=== PATIENT | female | born 1950 | race Caucasian/White ===

== ENCOUNTER → 2016-05-23 16:44 | Outpatient (CLI) | payer MEDICARE | END | disposition home or self-care (01) | LOC: D.MAMMO 09:15 | DX: Z12.31 Encounter for screening mammogram for malignant neoplasm of breast (principal) ==

== ENCOUNTER 2017-12-12 19:00 | Outpatient (CLI) | payer MEDICARE | END 2017-12-12 23:59 | disposition home or self-care (01) | LOC: D.MAMMO 19:00 | DX: Z12.31 Encounter for screening mammogram for malignant neoplasm of breast (principal) ==

== ENCOUNTER → 2018-01-07 18:34 | Outpatient (CLI) | payer MEDICARE | END | disposition home or self-care (01) | LOC: D.MAMMO 15:00 | DX: R92.8 Other abnormal and inconclusive findings on diagnostic imaging of breast (principal) ==

== ENCOUNTER 2018-04-22 14:32 | Inpatient (IN) | payer MEDICARE ==
[~2018-04-22] VITALS: Ht 160 cm; Wt 86.4 kg
[2018-04-22] MEDS ORDERED: JANUVIA100 MG PO (14:40)
[2018-04-22] MEDS ORDERED: GLUCOPHAGE1000 MG PO (14:40)
[2018-04-22] MEDS ORDERED: ACCUPRIL5 MG PO (14:41)
[2018-04-22] MEDS ORDERED: TRAZODONE HCL150 MG PO (14:41)
[2018-04-22] MEDS ORDERED: LIPITOR20 MG PO (14:41)
[2018-04-22] MEDS ORDERED: GLUCOTROL XL 1010 MG PO (14:41)
--- NOTE | 2018-04-22 14:47 | NUR ---
INFLUENZA SWAB DONE IN TRIAGE AND SENT TO LAB.
[2018-04-22 15:15] LABS: BASOPHILS 0.1 % (0-2); EOSINOPHILS 0.2 % (0-7); HEMATOCRIT 33.1 % (36.0-48.0); HEMOGLOBIN 11.4 g/dL (12-16); IMMATURE GRANULOCYTES 0.4 % (0-5); LYMPHOCYTES 7.7 % (15-50); MCH 28.8 pg (26.0-34.0); MCHC 34.4 g/dL (31.0-37.0); MCV 83.6 fL (80.0-100.0); MEAN PLATELET VOLUME 10.6 fL (7.4-10.4); MONOCYTES 7.3 % (2-11); NEUTROPHILS 84.3 % (40-80); PLATELET COUNT 263 10x3/uL (130-400); RBC 3.96 10x6/uL (4.00-5.40); RDW 12.8 % (11.5-14.5); WBC 19.1 10x3/uL (4.8-10.8)
[2018-04-22 15:30] LABS: APTT 29.6 SECONDS (22.8-39.4); INR 1.14 (0.85-1.17); PROTIME 14.1 SECONDS (11.6-15.0)
[2018-04-22 15:34] LABS: ALBUMIN 3.1 g/dL (3.4-5.0); ALKALINE PHOSPHATASE 48 U/L (46-116); ALT (SGPT) 21 U/L (10-68); CALC OSMOLALITY 274 mosm/kg (275-300); CALCIUM 8.5 mg/dL (8.5-10.1); CHLORIDE - SERUM 100 mmol/L (98-107); CREATININE - SERUM 1.4 mg/dL (0.6-1.3); GLUCOSE 151 mg/dL (74-106); POTASSIUM - SERUM 3.8 mmol/L (3.5-5.1); PROTEIN - SERUM 7.6 g/dL (6.4-8.2); SODIUM 135 mmol/L (136-145); UREA NITROGEN 19 mg/dL (7-18); eGFR NON AFRICAN AMERICAN 40 mL/min (90-120)
[2018-04-22 15:45] LABS: CKMB 1.3 U/L (0.0-3.6); CREATINE KINASE 161 UL (21-215); PRO BNP 342 pg/mL (0-125); TROPONIN-I < 0.017 ng/mL (0.000-0.060)
[2018-04-22 16:25] VITALS: BP 135/55
[2018-04-22 17:30] VITALS: BP 125/39
[2018-04-22 18:32] VITALS: BP 128/46
[2018-04-22 19:32] VITALS: BP 134/47
[2018-04-22 20:32] VITALS: BP 131/46
--- NOTE | 2018-04-22 21:10 | NUR ---
ZITHROMAX INFUSION COMPLETE @ 8117
[2018-04-22 21:15] VITALS: BP 118/47
--- NOTE | 2018-04-22 22:05 | NUR ---
PT ARRIVED FROM ER VIA WHEELCHAIR BY ER STAFF. PT HAS A IV IN LT HAND. BED IN LOW POSITION WITH CALL LIGHT IN REACH. WILL CONTINUE TO MONITOR PT AND FOLLOW PLAN OF CARE.
[2018-04-23] VITALS: BP 133/60
[2018-04-23 04:32] VITALS: BP 137/68
--- NOTE | 2018-04-23 07:42 | NUR ---
ROUNDING DONE WITH PATIENT LAYING IN BED WITH NASAL CANNULA AT 2 L . COUGHING. ON HEART MONITOR SHOWING SR, HR 72. LEFT HAND PIV SEEN WITH SALINE LOCK. WILL MONITOR.
--- NOTE | 2018-04-23 08:46 | NUR ---
T 100.2. NOTHING ON EMAR FOR FEVER. I CALLED GWENDOLYN SANDOVAL APN FOR ORDERS AND SHE WILL PLACE SOMETHING.
[2018-04-23 09:00] VITALS: BP 111/69
--- NOTE | 2018-04-23 10:11 | NUR ---
AXILLARY TEMP NOW 97.6.
[2018-04-23 11:51] VITALS: Ht 160 cm; Wt 86.4 kg
--- NOTE | 2018-04-23 12:31 | NUR ---
DENIES NEEDS AT THIS TIME, COUGHING. NO SPUTUM SEEN.
[2018-04-23 12:40] LABS: BASOPHILS 0.2 % (0-2); EOSINOPHILS 0.2 % (0-7); HEMATOCRIT 29.4 % (36.0-48.0); HEMOGLOBIN 9.8 g/dL (12-16); IMMATURE GRANULOCYTES 0.2 % (0-5); LYMPHOCYTES 11.5 % (15-50); MCHC 33.3 g/dL (31.0-37.0); MEAN PLATELET VOLUME 10.5 fL (7.4-10.4); MONOCYTES 9.4 % (2-11); NEUTROPHILS 78.5 % (40-80); PLATELET COUNT 234 10x3/uL (130-400); RDW 13.1 % (11.5-14.5)
[2018-04-23 12:43] VITALS: BP 116/61
[2018-04-23 12:44] LABS: WBC 12.6 10x3/uL (4.8-10.8)
[2018-04-23 12:53] LABS: % SATURATION 7 % (15-55); IRON 15 ug/dl (35-150); TOTAL IRON BIND CAPACITY 202 ug/dl (260-445); UNSAT IRON BIND CAPACITY 187 ug/dl (150-375)
[2018-04-23 13:09] LABS: ALBUMIN 2.6 g/dL (3.4-5.0); ANION GAP 16.5 mmol/L (8-16); BILIRUBIN - TOTAL 0.32 mg/dL (0.2-1.3); CALCIUM 8.1 mg/dL (8.5-10.1); CARBON DIOXIDE 22.8 mmol/L (21.0-32.0); CREATININE - SERUM 1.2 mg/dL (0.6-1.3); POTASSIUM - SERUM 3.3 mmol/L (3.5-5.1); PROTEIN - SERUM 6.4 g/dL (6.4-8.2)
--- NOTE | 2018-04-23 13:18 | NUR ---
REFUSED SCD PATIENT IS UP AND DOWN TO RESTROOM.
--- NOTE | 2018-04-23 14:52 | NUR ---
URINE SENT TO LAB ORDERED.
--- NOTE | 2018-04-23 15:30 | NUR ---
PATIENT IS MADE NPO FOR CTA. ADILENE RAMOS RN TRYING TO GET A 20 G IV IN.
--- NOTE | 2018-04-23 15:48 | NUR ---
ADILENE RAMOS RN WAS UNABLE TO GET IV IN. I CALLED RICHARDSON CHA RN VASCULAR ACCESS NURSE.
[2018-04-23 16:05] VITALS: BP 122/54
[2018-04-23 16:05] LABS: APPEARANCE CLEAR (CLEAR); BILIRUBIN NEGATIVE (NEGATIVE); COLOR YELLOW (YELLOW); GLUCOSE 50 mg/dL (NEGATIVE); KETONE NEGATIVE (NEGATIVE); NITRITE NEGATIVE (NEGATIVE); PROTEIN NEGATIVE (NEGATIVE); SPECIFIC GRAVITY 1.015 (1.005-1.020); UROBILINOGEN NORMAL (NORMAL)
--- NOTE | 2018-04-23 16:20 | NUR ---
RICHARDSON CHA RN TO START 20 G TO RIGHT HAND.
--- NOTE | 2018-04-23 17:41 | NUR ---
CALLED TO ROOM WITH PATIENT THINKING HER TEMP HAS GONE UP. ORAL 101.0. EVEN THOUGH PATIENT IS NPO FOR CTA, TYLENOL GIVEN WITH SIP OF WATER. FAMILY IS AT BEDSIDE.
--- NOTE | 2018-04-23 18:27 | NUR ---
RE-CHECKED TEMP, NOW 102.1. THIS IS RELAYED TO DR ROSADO. AWAITING NEW ORDERS.
--- NOTE | 2018-04-23 19:25 | NUR ---
INITIAL ASSESSMENT COMPLETED - PT FAMILY AT BEDSIDE. PT A/O X4. 20G PIV IN R HAND C/D/I, PATENT. 22G IN L HAND C/D/I, PATENT. NO C/O PAIN/DISCOMFORT AT THIS TIME. DENIES NEEDS. WCTM AND FOLLOW POC. CL IN REACH, SR UP X2, BED IN LOWEST POSITION.
[2018-04-23 20:00] VITALS: BP 118/57
--- NOTE | 2018-04-23 21:55 | NUR ---
PT BACK FROM CT SCAN, NOTIFIED PT OF ABILITY TO BREAK NPO STATUS. PT VERBALIZED UNDERSTANDING. ADMINISTERED PM MEDS, NO FURTHER NEEDS NOTED AT THIS TIME. CL IN REACH, SR UP X2, BED IN LOWEST POSITION.
[2018-04-24] VITALS: BP 116/49
[2018-04-24 04:00] VITALS: BP 123/58
[2018-04-24 06:17] LABS: FOLATE (FOLIC ACID) - SERUM 13.2 ng/mL (>3.0)
[2018-04-24 07:03] LABS: BASOPHILS 0.2 % (0-2); HEMATOCRIT 29.2 % (36.0-48.0); HEMOGLOBIN 9.8 g/dL (12-16); IMMATURE GRANULOCYTES 0.3 % (0-5); MCH 28.4 pg (26.0-34.0); MCHC 33.6 g/dL (31.0-37.0); MCV 84.6 fL (80.0-100.0); MEAN PLATELET VOLUME 10.6 fL (7.4-10.4); MONOCYTES 9.4 % (2-11); NEUTROPHILS 75.1 % (40-80); PLATELET COUNT 239 10x3/uL (130-400); RBC 3.45 10x6/uL (4.00-5.40); RDW 13.3 % (11.5-14.5); WBC 11.1 10x3/uL (4.8-10.8)
[2018-04-24 07:17] LABS: ANION GAP 15.4 mmol/L (8-16); CALCIUM 8.3 mg/dL (8.5-10.1); CARBON DIOXIDE 22.6 mmol/L (21.0-32.0); CREATININE - SERUM 1.1 mg/dL (0.6-1.3)
--- NOTE | 2018-04-24 08:21 | NUR ---
0645 BEDSIDE SHIFT REPORT DONE WITH NIGHT NURSE AND PT. PT UNDERSTANDS POC.
[2018-04-24 09:13] VITALS: BP 109/42
[2018-04-24 12:30] VITALS: BP 116/52
[2018-04-24 17:39] VITALS: BP 120/55
[2018-04-24 20:00] VITALS: BP 120/48
--- NOTE | 2018-04-24 20:00 | NUR ---
RECIEVED BEDSIDE REPORT. PT AA0X3, VSS. NO S/S OF DISTRESS. RR UNLABORED. PT HAS BEEN HAVING INTERMITENT COUGHING EPISODES. PT DENIES NEED AT THIS TIME. MEDS GIVEN. WILL CPOC. CL IN REACH, BED IN LOW, SR UP X2. WILL CTM.
[2018-04-25] VITALS (8 sets, daily range): BP systolic 109–136; BP diastolic 42–60
--- NOTE | 2018-04-25 04:54 | NUR ---
PT CURRENTLY RESTING IN BED WITH BOTH EYES CLOSED. WILL CPOC. CL IN REACH, BED IN LOW. SR UPX2.
[2018-04-25 07:14] LABS: BASOPHILS 0.2 % (0-2); EOSINOPHILS 2.2 % (0-7); HEMATOCRIT 30.9 % (36.0-48.0); HEMOGLOBIN 10.3 g/dL (12-16); IMMATURE GRANULOCYTES 0.3 % (0-5); LYMPHOCYTES 27.3 % (15-50); MCH 28.4 pg (26.0-34.0); MCHC 33.3 g/dL (31.0-37.0); MCV 85.1 fL (80.0-100.0); MEAN PLATELET VOLUME 10.4 fL (7.4-10.4); MONOCYTES 8.8 % (2-11); NEUTROPHILS 61.2 % (40-80); RBC 3.63 10x6/uL (4.00-5.40); RDW 13.1 % (11.5-14.5); WBC 9.3 10x3/uL (4.8-10.8)
[2018-04-25 07:19] LABS: ANION GAP 15.2 mmol/L (8-16); CALCIUM 8.5 mg/dL (8.5-10.1); CARBON DIOXIDE 24.1 mmol/L (21.0-32.0); CREATININE - SERUM 1.1 mg/dL (0.6-1.3); POTASSIUM - SERUM 4.3 mmol/L (3.5-5.1)
[2018-04-25 07:20] LABS: PLATELET COUNT 303 10x3/uL (130-400)
--- NOTE | 2018-04-25 08:33 | NUR ---
PATIENT IS AWAKE AND ALERT. STARTED HER ANTIBIOTICS IN THE LEFT HAND IV. SHE DENIES ANY NEEDS AT THIS TIME. SHE DID REPORT A COUGH LAST NIGHT AND WOULD LIKE SOME COUGH MEDICINE.
--- NOTE | 2018-04-25 19:20 | NUR ---
SITTING IN BEDSIDE CHAIR WATCHING TV. DENIES PAIN OR ANY NEEDS. IV IN RT HAND INTACT SL AND IV IN L WRIST INTACT SL. INITIAL ASSESSMENTS DONE PER NSG FLOWCHART. PLACED CL IN REACH.
--- NOTE | 2018-04-25 21:50 | NUR ---
ADMIN SCHED PO MEDS WITH SIPS OF WATER AND ROBITUSSIN FOR COUGH. REQUESTED DOOR CLOSED AND LIGHTS OFF TO SLEEP.
--- NOTE | 2018-04-26 00:15 | NUR ---
SOFTWARE DEVELOPMENT ENGINEER PRESENT IN ROOM TAKING VS. DENIES ANY NEEDS OR DISCOMFORTS. HAS CL IN REACH.
[2018-04-26 03:56] VITALS: BP 106/39
--- NOTE | 2018-04-26 04:00 | NUR ---
CLOCK AND WATCH HANDS MOUNTER TAKING VS. DENIES ANY NEEDS.
[2018-04-26 05:33] LABS: BASOPHILS 0.3 % (0-2); EOSINOPHILS 3.1 % (0-7); HEMATOCRIT 28.9 % (36.0-48.0); HEMOGLOBIN 9.7 g/dL (12-16); IMMATURE GRANULOCYTES 0.1 % (0-5); MCH 28.5 pg (26.0-34.0); MCHC 33.6 g/dL (31.0-37.0); MEAN PLATELET VOLUME 10.4 fL (7.4-10.4); MONOCYTES 10.1 % (2-11); NEUTROPHILS 56.4 % (40-80); PLATELET COUNT 266 10x3/uL (130-400); RDW 13.1 % (11.5-14.5); WBC 7.4 10x3/uL (4.8-10.8)
[2018-04-26 05:46] LABS: ANION GAP 16.5 mmol/L (8-16); CALCIUM 8.4 mg/dL (8.5-10.1); CARBON DIOXIDE 22.6 mmol/L (21.0-32.0); POTASSIUM - SERUM 4.1 mmol/L (3.5-5.1)
--- NOTE | 2018-04-26 07:51 | NUR ---
RECIVED BEDSIDE REPORT. AM ROUNDS COMPLETED. AAOX3, VSS, NO S/S OF RR DISTRESS, RR UNLABORED. PT UP IN BED WITH EYES OPEN. DENIES ANY NEEDS AT THIS TIME. WILL CPOC. CL IN REACH, BED IN LOW, SR UP X2.
[2018-04-26 08:28] VITALS: BP 132/48
[2018-04-26] MEDS ORDERED: LEVAQUIN750 MG PO (09:28)
--- NOTE | 2018-04-26 10:44 | NUR ---
PT SITTING ON COUCH RECIEVING BREATHING TREATMENT AND AWAITING DISCHARGE. CL IN REACH.
--- NOTE | 2018-04-26 11:07 | NUR ---
BOTH PT PERIPHERAL IV OUT. PT TOLERATE WELL. TELE RETURNED TO BURR MACHINE OPERATORROHINI. READ DC TEACHING TO PT. PT VERBALIZED UNDERSTANDING. PT SON WHEELED PT OUT OF THE FACILITY. ALL PT BELONGINGS SENT HOME WITH PT. PT DC'D.
--- NOTE | 2018-04-27 09:39 | MORECARE ---
CASE MANAGEMENT DISCHARGE SUMMARY PATIENT: DENNISE MUNIZ UNIT: [id number] ADM DATE: 04/22/18 AGE: 68 : 50 SEX: F ROOM/BED: D.2139 AUTHOR: JANNETH HOPE PHYSICIAN: REFERRING PHYSICIAN: BESSY ROSADO MD DATE OF SERVICE: 04/27/18 Discharge Plan Patient Name: DENNISE MUNIZ [facility] [facility] 1950 Planned Disposition: Home Anticipated Discharge Date: 04/26/18 Discharge Date: 04/26/2018 Expected LOS: 4 Initial Reviewer: [email or web address] Initial Review Date: 04/27/2018 Generated: 04/27/18 10:39 am Patient Name: DENNISE MUNIZ Page [id number] at 0939 All edits/amendments must be made on the electronic document DICTATION DATE: 04/27/18937 TC OPERATOR: TED 04/27/18937 RPT#: [id number] DC DATE:04/26/18 STATUS: DIS IN [facility] [address] [facility] [place] [address] END OF REPORT
--- NOTE | 2018-04-27 11:46 | EC ---
PATIENT:DENNISE MUNIZ DATE OF SERVICE: 04/22/18 SEX: F MEDICAL RECORD: [id number] DATE OF : 50 LOCATION:D.M2 D.213 AGE OF PATIENT: 68 ADMISSION DATE: 04/22/18 REFERRING PHYSICIAN: INTERPRETING PHYSICIAN: MARCIO KAISER MD ECHOCARDIOGRAM REPORT ECHO CHARGES 4 ECHO COMPLETE Date: 04/23/18 CLINICAL DIAGNOSIS: CHF ECHOCARDIOGRAPHIC MEASUREMENTS (adult normal given) AC root (d.<3.7cm) 3.3 cm LV Septum d (<1.2 cm> 1.4 cm Valve Excursion 1.5 cm LV Septum (systole) 1.7 cm Left Atria (s.<4.0cm> 3.4 cm LVPW d(<1.2cm) 1.7 cm RV (d.<2.3cm) 3.5 cm LVPW (sytole) 2.0 cm LV diastole(<5.6CM) 5.0 cm MV E-F(>70mm/sec) cm LV systole 2.6 cm LVOT Diameter 1.6 cm MV exc.(>10mm) 1.9 cm Est.ejection fraction (50-75%) % DOPPLER: LVIT cm/sec A 102 cm/sec E 115 cm/sec LA cm/sec RVSP 45 mmHg LVOT 124 cm/sec AOP1/2T m/s Asc. Ao 157 cm/sec RVOT 96 cm/sec RA cm/sec PA 130 cm/sec AV Gradient Peak 9.83 mmHg AV Mean 5.97 mmHg AV Area 1.6 cm MV Gradient Peak 8.15 mmHg MV Mean 2.88 mmHg MV Area cm COMMENTS: Marketing Communications Specialist: Remedios LAWRENCE Procurement Internship: 1 Dr. [facility] TAPE# PACS Pericardial Effusion N DATE OF SERVICE: 04/23/2018 ECHOCARDIOGRAM DATE OF SERVICE: 04/23/2018 FINDINGS: 1. Left ventricular chamber size is within normal limits. Left ventricular systolic function is normal. Overall ejection fraction is estimated at 65%. 2. Left atrium, right atrium, and right ventricular chamber sizes are within ECHOCARDIOGRAM REPORT [id number] DENNISE MUNIZ normal limits. 3. Valvular structures have normal structure and motion. 4. Doppler interrogation reveals mild tricuspid regurgitation, no other valvular insufficiency or stenosis. Pulmonary systolic pressure is estimated at 45 mmHg. 5. No evidence of pericardial effusion or left ventricular thrombus. TRANSINT:[id number] Voice Confirmation ID: [id number] DOCUMENT ID: [id number] MARCIO KAISER MD at 1146 CC: [id number] DICTATION DATE: 04/24/18 1123 ANCHORMAN: 04/24/18 1147 DIS IN 04/26/18 [place] [id number] [place] [id number]
== END 2018-04-26 12:23 | disposition home or self-care (01) | DRG 194 ==
LOC: D.ER 14:32 → D.M2 19:10 → OBSVTIME 19:10 → D.M2 19:11
PROVIDERS: Family Medicine; ADMIT Internal Medicine Nephrology
DX: J18.1 Lobar pneumonia, unspecified organism (principal); N17.9 Acute kidney failure, unspecified; R55 Syncope and collapse; D50.9 Iron deficiency anemia, unspecified; I10 Essential (primary) hypertension; E78.5 Hyperlipidemia, unspecified; E11.9 Type 2 diabetes mellitus without complications

== ENCOUNTER 2020-07-09 19:43 | Observation (INO) | payer MEDICARE ==
[~2020-07-09] VITALS: Ht 160 cm; Wt 86.6 kg
--- NOTE | ~2020-07-09 | HEMODYNAMI ---
PATIENT:DENNISE MUNIZ MEDICAL RECORD: [id number] : 50 LOCATION:[facility]31 ADMISSION DATE: 07/09/20 Generatedon:111:02 Patient name: DENNISE MUNIZ Patient #: [id number] SSN: : 1950 Date of study: 07/10/2020 Page: Of Hemodynamic Procedure Report Patient Data Patient Demographics Procedure consent was obtained First Name: DENNISE Gender: Female Last Name: FLAVIO : 1950 Patient #: [id number] Age: 70 year(s) Race: Additional ID: [id number] Contact details Address: [place] [address] State: [place] City: [place] Zip code: [address] Past Medical History Allergies: No known allergies Admission Admission Data Admission Date: 07/09/2020 Admission Time: 23:36 Admit Source: Other Insurance Payor: Medicare Room #: D.2231 Height (in.): 63 BSA: 1.9 (m2) Height (cm.): 160.02 BMI: 33.83 (kg/m2) Weight (lbs.): 190.99 Weight (kg.): 86.63 Lab Results Lab Result Date: 07/10/2020 Lab Result Time: 0:00 Biochemistry Name Units Result Min Max CK-MB ng/ml 4.8 --(----)-* 0 3.6 Creatinine mg/dl 1.3 --(---*)-- 0.6 1.3 eGFR ml/min 43 *-(----)-- 90 120 AM Troponin l ng/ml 0.017 --(-*--)-- 0 0.06 CBC Name Units Result Min Max Hemoglobin g/dl 11.6 *-(----)-- 13.5 17.5 Coagulation Name Units Result Min Max INR units 1.08 --(--*-)-- 0.85 1.17 PT sec 12.9 --(-*--)-- 11.6 15 Procedure Procedure Types Cath Procedure Diagnostic Procedure [facility] w/Coronaries FFR/IVUS FFR Initial Sedation Charges Moderate Sedation 10-24 minutes Procedure Description Procedure Date Procedure Date: 07/10/2020 Procedure Start Time: 10:41 Procedure End Time: 10:59 Procedure Staff Name Function Power Dos Santos MD Performing Physician Yulissa Oviedo RT Monitor Zaira Schwartz RN Nurse Markus Guerra RN Nurse Flora Parker RT Scrub Procedure Data Cath Procedure Fluoroscopy Diagnostic fluoroscopy Total fluoroscopy Time: 3.5 time: 3.5 min min Diagnostic fluoroscopy Total fluoroscopy dose: 490 dose: 490 mGy mGy Contrast Material Contrast Material Type Amount (ml) Isovue 300 65 Entry Location Entry Primary Successful Side Size Upsize Upsize Entry Closure Succes sful Closure Location (Fr) 1 (Fr) 2 (Fr) Remarks Device Remarks Femoral Right 5 Fr Exoseal artery Estimated blood loss: 5 ml Diagnostic catheters Device Type Used For End Catheter Placement MULTIPACK JL 4.0 5Fr Left Coronary catheter Angiography MULTIPACK 3DRC 5Fr Right Coronary catheter Angiography MULTIPACK Pigtail 5 Fr LV Angiography catheter MULTIPACK JL 4.0 5Fr catheter Procedure Complications No complications Procedure Medications Medication Administration Route Dosage Heparin Flush Bag added to field 2 bags (1000units/500ml NS) Oxygen etCO2 Nasal cannula 2 l/min Lidocaine 2% added to field 20 0.9% NaCl I.V. 100 ml/hr Fentanyl I.V. 50 mcg Versed I.V. 1 mg Heparin Bolus 2000 units Fentanyl I.V. 50 mcg Hemodynamics Rest BSA: 1.9 (m2) HGB: 11.6 (g/dl) O2 Consumption: Estimated: 161.33 (ml/min) O2 Con sumption indexed: Estimated:84.91 (ml/min/m) Heart Rate: 51 (bpm) Pressure Samples Time Site Value (mmHg) Purpose Heart Use Rate(bpm) 10:44 AO 104/50(71) Snapshot 62 10:47 LV 125/2,6 Snapshot 81 Snapshots Pre Cath Intra NCS Post Cath Vital Signs Time Heart Resp SPO2 etCO2 NIBP (mmHg) Rhythm Pain Sedation Rate (ipm) (%) (mmHg) Status Level (bpm) 10:35:46 61 22 100 32.6 144/67(108) NSR 0 (11) 10(A) , No pain 10:40:12 62 18 100 34.1 131/68(111) NSR 0 (11) 9(A) , No pain 10:44:34 61 18 99 38.5 122/58(90) NSR 0 (11) 9(A) , No pain 10:48:55 65 16 99 37.8 125/65(91) NSR 0 (11) 9(A) , No pain 10:53:15 66 18 99 36.3 132/61(108) NSR 0 (11) 10(A) , No pain 10:57:37 64 17 99 35.6 126/66(106) NSR 0 (11) 10(A) , No pain Medications Time Medication Route Dose Verified Delivered Reason Notes Effectiveness by by 10:35:15 Heparin Flush added 2 Power Power used for Bag to bags [facility] procedure (1000units/500ml field MD NICHOLS NS) 10:35:29 Oxygen etCO2 2 Power Markus used for Nasal l/min St Pasha Guerra RN procedure cannula 10:35:39 Lidocaine 2% added 20ml Power Power for local to vial [facility] anesthetic field MD NICHOLS 10:35:52 0.9% NaCl I.V. 100 Power Markus used for ml/hr St Pasha Guerra RN procedure 10:39:46 Fentanyl I.V. 50 Power Markus for sedation mcg St Pasha Guerra RN, MD 10:42:39 Versed I.V. 1 mg Power Markus for sedation St Pasha Guerra RN, MD 10:49:03 Heparin Bolus 2000 Power Markus for verif ied units St Pasha Guerra RN anticoagulation per MD Zaira MORFIN 10:54:52 Fentanyl I.V. 50 Power Markus for sedation [facility] Pasha Guerra RN, MD Procedure Log Time Note 10:14:06 Admit Source: Other 10:14:10 Insurance Payor : Medicare 10:14:18 Patient Height : 63 inches 10:14:22 Patient Weight : 190.99 lbs 10:15:52 Lab Result : Hemoglobin 11.6 g/dl 10:15:52 Lab Result : eGFR AM 43 ml/min 10:15:52 Lab Result : Troponin l 0.017 ng/ml 10:15:52 Lab Result : Creatinine 1.3 mg/dl 10:15:52 Lab Result : CK-MB 4.8 ng/ml 10:15:52 Lab Result : INR 1.08 units 10:15:52 Lab Result : PT 12.9 sec 10:15:59 Diagnostic Cath Status : Urgent 10:16:23 Zaira Schwartz RN sent for patient. Start room use. 10:16:24 Time tracking: Regular hours (M-F 7:00 - 5:00) 10:16:27 Plan of Care:Hemodynamics will remain stable., Cardiac rhythm will remain stable., Comfort level will be maintained., Respiratory function will remain adequate., Patient/ family verbilizes understanding of procedure., Procedure tolerated without complication., Recovers from procedure without complications.. 10:16:48 ACC Patient presents with Unstable Angina CCS Anginal Class 3--Marked limitation of physical activity, angina occurs with ordinary activity.. 10:17:50 Procedure Status Urgent Heart Cath (IP). 10:26:36 Patient received from Med/Surg to CCL 1 Alert and oriented. Tansferred to table in Supine position. 10:26:40 Signed procedure consent form obtained from patient. 10:26:41 Warm blankets applied, and kobi hugger turned on for patient comfort. 10:26:42 Correct patient and procedure confirmed by team. 10:26:42 ECG and BP/O2 sat monitors applied to patient. 10:26:44 Full Disclosure recording started 10:32:11 H&P Date Dictated: 07/09/2020 Within 30 days and on chart.. 10:32:14 Pre-procedure instructions explained to patient. 10:32:15 Family unavailable. 10:32:17 Patient NPO since Midnight. 10:32:25 Patient allergic to No known allergies 10:32:29 Is the patient allergic to Iodine/contrast media? No. 10:32:30 Was the patient premedicated? Yes 10:32:34 Is patient on blood thinner?No 10:32:35 Patient diabetic? Yes. 10:32:37 If diabetic: On Metformin? No 10:32:41 Snore? Yes 10:32:50 Sleep apnea? No 10:32:59 Dentures? No ? 10:33:30 Right groin area was prepped with chlora-prep and draped in sterile fashion 10:33:31 Alarms reviewed by R. N. 10:33:32 Sharps counted by scrub and verified by R.N. 10:33:35 Physician arrived 10:33:42 Vital chart was started 10:33:44 Baseline sample Acquired. 10:35:04 STOPCOCK 3-Way Large Bore ([id number]) opened to sterile field. 10:35:08 Use device set Femoral Dx 10:35:09 ACIST Syringe (61933) opened to sterile field. 10:35:09 Bag Decanter (2002S) opened to sterile field. 10:35:10 Medline Cath Pack ([id number]) opened to sterile field. 10:35:11 ACIST Hand Control (18500) opened to sterile field. 10:35:12 ACIST Manifold (83281) opened to sterile field. 10:35:15 Heparin Flush Bag (1000units/500ml NS) 2 bags added to field was administered by Power Dos Santos MD; used for procedure; Verbal order read back and verified. 10:35:15 DIAGNOSTIC Multipack 5Fr catheter set (PD9505) opened to sterile field. 10:35:18 SHEATH 5FR [place] (TQF352) opened to sterile field. 10:35:19 EMERALD Guide Wire (202-177) opened to sterile field. 10:35:26 Baseline sample Acquired. 10:35:29 Oxygen 2 l/min etCO2 Nasal cannula was administered by Markus Guerra RN; used for procedure; Verbal order read back and verified. 10:35:29 Rhythm: sinus rhythm 10:35:33 Pre-op teaching completed and patient verbalized understanding. 10:35:39 Lidocaine 2% 20ml vial added to field was administered by Power Dos Santos MD; for local anesthetic; Verbal order read back and verified. 10:35:46 ACC The patient was administered the following blood thiners within the last 24 hours: None 10:35:51 Bleeding risk 0.1%. 10:35:52 0.9% NaCl 100 ml/hr I.V. was administered by Markus Guerra RN; used for procedure; Verbal order read back and verified. 10:36:01 If on Metformin: Last Dose? 07/10/2020 10:36:16 Previous problem with sedation/anesthesia? No ? 10:36:17 Deviated septum? No 10:36:18 Opens mouth fully? Yes 10:36:19 Sticks out tongue? Yes 10:36:22 Airway obstruction? No ? 10:36:24 Pre procedure: right dorsailis pedis pulse 2+ Normal; easily identifiable; not easily obliterated 10:36:30 Patient pain scale 0/10 ?. 10:36:44 IV patent on arrival in left hand with 0.9% NaCl at O. 10:36:47 Lab results completed and on chart. 10:36:57 Risk of Mortality: 1.2 10:37:01 Risk of blood transfusion: 0.1 10:37:04 Risk of JEFF: 0.5 10:38:55 Final Timeout: patient, procedure, and site verified with staff and physician. All members of the team are in agreement. 10:38:57 Right groin site verified by team. 10:39:02 Fire Safety Assessment: A--An alcohol-based skin anteseptic being used preoperatively., C--Open oxygen or nitrous oxide is being used., D--An ESU, laser, or fiber-optic light is being used. 10:39:07 Physical assessment completed. ASA score P 2 - A patient with mild systemic disease as per Power Dos Santos MD. 10:39:14 3b) 30-44 Moderately reduced kidney function. 10:39:17 Maximum allowable contrast dose (3.7 X eGFR X 0.75)119 ml. 10:39:20 Sedation plan: IV Moderate Sedation Medication:Versed, Fentanyl 10:39:46 Fentanyl 50 mcg I.V. was administered by Markus Guerra RN; for sedation; Verbal order read back and verified. 10:41:05 Procedure started. 10:41:09 Local anesthetic to right femoral artery with Lidocaine 2% by Power Dos Santos MD.INITIAL ACCESS ONLY 10:42:31 A 5 Fr sheath was inserted into the Right Femoral artery 10:42:39 Versed 1 mg I.V. was administered by Markus Guerra RN; for sedation; Verbal order read back and verified. 10:43:30 Zero performed for pressure channel P1 10:43:41 A MULTIPACK JL 4.0 5Fr catheter was advanced over the wire and used for Left Coronary Angiography. 10:45:07 Catheter removed. 10:45:30 A MULTIPACK 3DRC 5Fr catheter was advanced over the wire and used for Right Coronary Angiography. 10:45:54 Catheter removed. 10:46:47 A MULTIPACK Pigtail 5 Fr catheter was advanced over the wire and used for LV Angiography. 10:47:50 LV gram done using HINES 10:47:56 EF : 50 % 10:48:00 Catheter removed. 10:48:20 INFLATOR Merit CullenCompak (WH6954) opened to sterile field. 10:48:32 State Farm OmniWire (81404) opened to sterile field. 10:48:40 FFR/IVUS 10:49:03 Heparin Bolus 2000 units was administered by Markus Guerra RN; for anticoagulation; verified per Zaira MORFIN Verbal order read back and verified. 10:49:10 A MULTIPACK JL 4.0 5Fr catheter was advanced over the wire and used for .IVUS LAD 10:50:29 Pressure wire advanced. 10:53:31 Wire advanced across lesion. 10:54:37 Wire removed. 10:54:48 Catheter removed. 10:54:52 Fentanyl 50 mcg I.V. was administered by Markus Guerra RN; for sedation; Verbal order read back and verified. 10:54:56 Sheath removed intact; hemostasis achieved with Exoseal to the Right Femoral artery. 10:54:58 Procedure ended.(Physican Out) 10:55:10 Fluoroscopy time 03.50 minutes. 10:55:15 Flurop Dose total: 490 10:55:15 Fluoroscopy dose: 490 mGy 10:55:20 Dose Area Product 803 mGy/cm. 10:55:32 Contrast amount:Isovue 300 65ml. 10:55:34 Maximum allowable dose exceeded? No. 10:55:35 Sharps counted by scrub and verified by R.N. 10:55:37 Insertion/operative site no bleeding no hematoma. 10:55:40 Post-op/insertion site Right Femoral artery dressed using a 4 x 4 and Tegaderm. 10:55:48 Post right femoral artery:stable, clean and dry 10:55:58 Post Procedure Pulses reassessed and unchanged 10:56:02 Post-procedure physical assessment completed. ASA score P 2 - A patient with mild systemic disease as per Power Dos Santos MD. 10:56:04 Post procedure rhythm: unchanged. 10:56:07 Estimated blood loss: 5 ml 10:56:08 Post procedure instruction explained to patient.Patient verbalizes understanding. 10:56:08 Patient needs reinforcement of post procedure teaching. 10:56:27 Procedure type changed to Cath procedure, Diagnostic procedure, LHC, LHC w/Coronaries, FFR/IVUS, FFR Initial, Sedation Charges, Moderate Sedation 10-24 minutes 10:56:31 Procedure Complication : No complications 10:56:36 Operative report dictated upon procedure completion. 10:56:36 See physician's report for complete and final results. 10:57:08 Procedure and supply charges have been captured, reviewed, submitted and are correct. 10:58:44 EXOSEAL 5Fr (EX500) opened to sterile field. 10:58:45 Tegaderm 4 x 4 (1626W) opened to sterile field. 10:59:45 Vital chart was stopped 10:59:49 Report given to Pre/Post Procedure Room. 10:59:52 Patient transfered to Pre/Post Procedure Room with Stretcher. 10:59:54 Procedure ended. 10:59:54 Full Disclosure recording stopped 11:00:13 ACT drawn and resulted at 145 seconds. (normal therapeutic range 180-240 seconds). 11:01:59 Flora Parker RT(R) was relieved by Yulissa Counts RT(R) as monitoring person 11:02:19 Yulissa Counts RT(R) was relieved by Yulissa Counts RT(R) as monitoring person Device Usage Item Name Manufacture Quantity Catalog Hospital Part Current Minimal L ot# / Number Charge Number Stock Stock Serial# Code Formerly [facility] 1 [id number] 9009 112633 5 3-Way Large Bore (H06591) ACIST Acist 1 87970 638913 743346 865087 20 Syringe Medical (59812) Systems Inc Bag Microtek 1 469496 51602 339804 5 Decanter Medical Inc. () Medline Medline 1 [id number] 710930 35336 932571 5 Cath Pack ([id number]) ACIST Hand Acist 1 26529 507123 349518 237718 5 Control Medical (95744) Systems Inc ACIST Acist 1 29295 549739 377806 614113 5 Manifold Medical (76895) Systems Inc DIAGNOSTIC Cardinal 1 WA0114 353330 32180 502889 30 ShowMe VIdeoke 5Fr catheter set (WL0585) SHEATH 5FR Terumo 1 XGS486 686511 218862 028047 5 [place] (RMC266) [facility] Cardinal 1 502-455 089333 867353 477974 5 Guide Wire Health (502-455) MULTIPACK Cardinal 1 458317 5 JL 4.0 5Fr Health catheter MULTIPACK Cardinal 1 715433 5 3DRC 5Fr Health catheter MULTIPACK Cardinal 1 415347 5 Pigtail 5 Health Fr catheter INFLATOR [facility] 1 IH2859 234972 892111 437140 [address] [facility] BasixCompak (MW6239) State Farm State Farm 1 9879579 229033 57697 9952 5 OmniWire (12555) EXOSEAL 5Fr Cardinal 1 EX500 179530 070780 688393 10 (EX500) Health Tegaderm 4 3M 1 1626W 142664 034021 281475 5 x 4 (1626W) Signature Audit [place] Stage Time Signature Unsigned Intra-Procedure 07/10/2020 Zaira Schwartz RN 11:01:50 AM Intra-Procedure 07/10/2020 Yulissa 11:02:12 AM Counts RT(R) Intra-Procedure 07/10/2020 Power Stokes 11:02:39 AM Pasha NICHOLS [facility] [address] [place] [address]
[~2020-07-09 19:43] MED LIST: ACCUPRIL5 MG PO; GLUCOPHAGE1000 MG PO; GLUCOTROL XL 1010 MG PO; JANUVIA100 MG PO; LEVAQUIN750 MG PO; LIPITOR20 MG PO; TRAZODONE HCL150 MG PO
[2020-07-09 20:28] LABS: BASOPHILS 0.3 % (0-2); EOSINOPHILS 4.7 % (0-7); HEMATOCRIT 32.4 % (36.0-48.0); HEMOGLOBIN 11.1 g/dL (12-16); IMMATURE GRANULOCYTES 0.1 % (0-5); LYMPHOCYTE ABS# 2.63 10x3/uL (1.18-3.74); LYMPHOCYTES 33.2 % (15-50); MCH 28.8 pg (26.0-34.0); MCHC 34.3 g/dL (31.0-37.0); MCV 84.2 fL (80.0-100.0); MEAN PLATELET VOLUME 11.2 fL (7.4-10.4); MONOCYTES 11.6 % (2-11); NEUTROPHIL ABS# 3.98 10x3/uL (1.56-6.13); NEUTROPHILS 50.1 % (40-80); RBC 3.85 10x6/uL (4.00-5.40); RDW 12.6 % (11.5-14.5); WBC 7.9 10x3/uL (4.8-10.8)
[2020-07-09 20:31] LABS: PLATELET COUNT 208 10x3/uL (130-400)
[2020-07-09 20:38] LABS: INR 1.08 (0.85-1.17); PROTIME 12.9 SECONDS (11.6-15.0)
[2020-07-09 20:39] LABS: D-DIMER-QUANTITATIVE 0.63 ug/mLFEU (0.20-0.54)
[2020-07-09 20:45] LABS: CALC OSMOLALITY 272 mosm/kg (275-300); CALCIUM 9.4 mg/dL (8.5-10.1); CARBON DIOXIDE 25.5 mmol/L (21.0-32.0); CHLORIDE - SERUM 96 mmol/L (98-107); CREATININE - SERUM 1.4 mg/dL (0.6-1.3); POTASSIUM - SERUM 3.9 mmol/L (3.5-5.1); SODIUM 133 mmol/L (136-145); UREA NITROGEN 18 mg/dL (7-18); eGFR NON AFRICAN AMERICAN 39 mL/min (90-120)
[2020-07-09 20:56] LABS: GLUCOSE 182 mg/dL (74-106)
[2020-07-09 20:58] LABS: ALBUMIN 3.5 g/dL (3.4-5.0); ALKALINE PHOSPHATASE 51 U/L (30-120); ALT (SGPT) 36 U/L (10-68); C-REACTIVE PROTEIN 1.5 mg/dL (0.0-0.9); LIPASE 172 U/L (73-393); MAGNESIUM - SERUM 1.3 mg/dL (1.8-2.4); PRO BNP 73 pg/mL (0-125); PROTEIN - SERUM 7.2 g/dL (6.4-8.2)
[2020-07-09 20:59] LABS: TROPONIN-I < 0.017 ng/mL (0.000-0.060)
[2020-07-09 21:00] VITALS: BP 138/48
[2020-07-09 22:00] VITALS: BP 149/49
[2020-07-09 23:00] VITALS: BP 145/49
[2020-07-10 00:16] VITALS: BP 128/48
[2020-07-10 02:00] VITALS: BP 137/69
--- NOTE | 2020-07-10 02:00 | NUR ---
RECEIVED PT TO FLOOR VIA STRETCHER. DENIES CHEST PAIN. C/O BACK, SHOULDER AND LEG PAIN 09/16. GAVE MORPHINE 4 MG IV PUSH. REVIEWED HISTORY AND MEDS. SCD'S AND INCENTIVE SPIROMETER PROVIDED. ASSESSMENT COMPLETE PER FLOWSHEET.
[2020-07-10] MEDS ORDERED: GLIPIZIDE10 MG PO (02:01)
[2020-07-10] MEDS ORDERED: HCTZ25 MG PO (02:02)
[2020-07-10] MEDS ORDERED: ACCUPRIL5 MG PO (02:03)
[2020-07-10] MEDS ORDERED: MOTRIN600 MG PO (02:07)
[2020-07-10] MEDS ORDERED: PEPCID AC20 MG PO (02:07)
[2020-07-10] MEDS ORDERED: ACETAMINOPHEN500 M1 PO (02:08)
[2020-07-10 06:30] LABS: BASOPHILS 0.3 % (0-2); EOSINOPHILS 4.2 % (0-7); HEMOGLOBIN 11.6 g/dL (12-16); IMMATURE GRANULOCYTES 0.3 % (0-5); LYMPHOCYTE ABS# 3.15 10x3/uL (1.18-3.74); LYMPHOCYTES 40.3 % (15-50); MCH 28.6 pg (26.0-34.0); MCHC 34.1 g/dL (31.0-37.0); MCV 83.7 fL (80.0-100.0); MEAN PLATELET VOLUME 10.6 fL (7.4-10.4); MONOCYTES 9.8 % (2-11); NEUTROPHIL ABS# 3.53 10x3/uL (1.56-6.13); NEUTROPHILS 45.1 % (40-80); PLATELET COUNT 210 10x3/uL (130-400); RBC 4.06 10x6/uL (4.00-5.40); RDW 12.8 % (11.5-14.5); RETIC 1.11 % (0.45-2.28); WBC 7.8 10x3/uL (4.8-10.8)
[2020-07-10 06:53] LABS: % SATURATION 26 % (15-55); IRON 72 ug/dl (35-150); TOTAL IRON BIND CAPACITY 272 ug/dl (260-445); UNSAT IRON BIND CAPACITY 200 ug/dl (150-375)
[2020-07-10 06:59] LABS: CKMB 4.8 U/L (0.0-3.6); TROPONIN-I < 0.017 ng/mL (0.000-0.060)
[2020-07-10 07:02] LABS: CREATINE KINASE 878 UL (21-215)
[2020-07-10 07:20] VITALS: Ht 160 cm; Wt 86.6 kg
[2020-07-10 08:10] LABS: ALBUMIN 3.5 g/dL (3.4-5.0); ALKALINE PHOSPHATASE 49 U/L (30-120); ALT (SGPT) 36 U/L (10-68); BILIRUBIN - TOTAL 0.38 mg/dL (0.2-1.3); CALC OSMOLALITY 281 mosm/kg (275-300); CALCIUM 9.4 mg/dL (8.5-10.1); CARBON DIOXIDE 24.9 mmol/L (21.0-32.0); CHLORIDE - SERUM 102 mmol/L (98-107); CHOL - HDL RATIO 2.4 ratio (2.3-4.1); CHOLESTEROL, TOTAL 154 mg/dL (0-200); CREATININE - SERUM 1.3 mg/dL (0.6-1.3); FERRITIN 93 ng/mL (3-244); GLUCOSE 166 mg/dL (74-106); HDL CHOLESTEROL 63 mg/dL (32-96); LDH 188 U/L (81-234); LDL CHOLESTEROL 69 mg/dL (0-100); LDL-HDL RATIO 1.1 ratio (1.5-3.5); MAGNESIUM - SERUM 1.6 mg/dL (1.8-2.4); PHOSPHOROUS 3.3 mg/dL (2.5-4.9); POTASSIUM - SERUM 4.3 mmol/L (3.5-5.1); PROTEIN - SERUM 7.4 g/dL (6.4-8.2); SODIUM 138 mmol/L (136-145); TRIGLYCERIDE 110 mg/dL (30-200); UREA NITROGEN 18 mg/dL (7-18); eGFR NON AFRICAN AMERICAN 43 mL/min (90-120)
[2020-07-10 09:33] VITALS: BP 138/46
--- NOTE | 2020-07-10 10:05 | NUR ---
PATIENT SEEN BY DR GONZALEZ GOING TO [facility] TODAY, PREOP PATIENT AT 1000, NOMOTHER NEEDS AT THIS TIME. CONTINUE WITH PLAN OF CARE
[2020-07-10 10:20] LABS: BILIRUBIN NEGATIVE (NEGATIVE); KETONE NEGATIVE (NEGATIVE); NITRITE NEGATIVE (NEGATIVE); UROBILINOGEN NORMAL mg/dL (< 2)
--- NOTE | 2020-07-10 11:10 | NUR ---
ARRIVES TO ROOM 9 VIA PT BED FROM MODEL MAKER PLASTIC S/P HEART CATH. SEE RESEARCH SUPPORT SPECIALIST. PT DENIES PAIN OR NEEDS AT PRESENT. CALL LIGHT WITHIN REACH. PT UPDATED ON PLAN OF CARE AND TIME FRAME.
--- NOTE | 2020-07-10 11:24 | NUR ---
PT RESTING QUIETLY, AROUSES EASILY TO VERBAL, VSS, SR , SATS 97% 2LNC, RIGHT GROIN SOFT WITH NO OOZING OR BLEEDING, NO PALPABLE HEMATOMA, PEDAL PULSE PALPABLE, IV INFUSING PER ORDERS, DENIES PAIN OR NEEDS AT THIS TIME , CALL LIGHT WITHIN REACH
--- NOTE | 2020-07-10 11:32 | CN ---
PATIENT NAME:DENNISE MUNIZ MEDICAL RECORD: [id number] : 50 LOCATION:[id number] ADMIT DATE: 07/09/20 ACCOUNT: [id number] CONSULTING PHYSICIAN: GAVI DIMAS MD REFERRING PHYSICIAN: ALFONSO SANTOS MD DATE OF CONSULTATION: 07/10/2020 HISTORY OF PRESENT ILLNESS: A 70-year-old female with no known history of coronary artery disease. She has a history of hypertension, hyperlipidemia, diabetes mellitus, presented with chest pain radiating to the left arm, shoulder and left jaw, kind of shortness of breath, has been having more effort intolerance as of late as well. Does have a brother with coronary artery disease status post stenting as well as mom. We are asked to see her concerning cardiovascular status. PAST MEDICAL HISTORY: Includes; 1. History of hypertension. 2. Hyperlipidemia. 3. Diabetes mellitus. MEDICATIONS: Include Januvia 100 mg p.o. daily, metformin 1 gram b.i.d., glipizide 10 b.i.d., hydrochlorothiazide 25 daily, trazodone 150 at bedtime, quinapril 5 mg p.o. daily, atorvastatin 20 daily. SOCIAL HISTORY: Nonsmoker, nondrinker. Easily takes cares of all his ADLs. REVIEW OF SYSTEMS: The patient reports easy bruising but reports no swollen glands. The patient reports no fever, no night sweats, no significant weight gain, no significant weight loss. No significant exercise tolerance. The patient reports no dry eyes, no irritation, no vision change. Patient reports no difficulty hearing and no ear pain. Patient reports no frequent nose bleeds or nose and sinus problems. Patient reports on arm pain on exertion. No shortness of breath while lying down. No history of heart murmur. Patient reports no cough, no wheezing or coughing up blood. Patient reports no abdominal pain, no vomiting. Normal appetite. No diarrhea and not vomiting blood. No nausea and no constipation. Patient reports no incontinence. No difficulty urinating. No hematuria. No increased frequency. Patient reports no muscle aches. No weakness, no arthralgias, no back pain. No swelling of the extremities. Patient reports no abnormal mole, no jaundice, no rashes. Reports no loss of consciousness. No weakness and no numbness. No seizures, dizziness, or headaches. The patient reports no depression, no sleep disturbance, feeling safe in a relationship and no alcohol abuse. Patient reports on fatigue. Reports no runny nose or sinus pressure. No itching, no hives, and no frequent sneezing. PHYSICAL EXAMINATION: GENERAL: No acute distress, appears stated age. VITAL SIGNS: 139/69, pulse 81 and regular. HEENT: Normocephalic, atraumatic. NECK: No JVD, no carotid bruit. HEART: Regular. LUNGS: Solorio good air excursion. ABDOMEN: Soft, nontender. EXTREMITIES: Pulses 2+. There is no edema. CONSULT REPORT [id number] DENNISE MUNIZ DIAGNOSTIC STUDIES: EKG shows nonspecific ST-T changes. IMPRESSION: Acute coronary syndrome with multiple risk factors. PLAN: For angiography and intervention based on above. 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
--- NOTE | 2020-07-10 11:55 | NUR ---
AWAKE AND ALERT, SIPS OF WATER GIVEN, VSS, SB HR 55, SATS 99% 2LNC / NC REMOVED AT THIS TIME. RIGHT GROIN SOFT WITHOUT OOZING OR BLEEDING OR PALPABLE HEMATOMA, PEDAL PULSE PALPABLE, DENIES PAIN OR NEEDS, DENIES BATHROOM NEEDS, IV INFUSING PER ORDERS, CALL LIGHT WITHIN REACH
--- NOTE | 2020-07-10 12:10 | NUR ---
AWAKE AND ALERT WHEN APPROACHED PT, VSS, SB RATE 58 WITHOUT ECTOPY, SATS 95% ON RA, RIGHT GROIN SOFT WITHOUT OOZING OR BLEEDING OR PALPABLE HEMATOMA, PEDAL PULSE PALPABLE, IV INFUSING PER LEFT PIV PER ORDERS, DENIES PAIN OR NEEDS, CALL LIGHT WITHIN REACH
--- NOTE | 2020-07-10 12:30 | NUR ---
RIGHT GROIN SOFT WITHOUT OOZING OR BLEEDING NOTED, NO PALPABLE HEMATOMA, PEDAL PULSE PALPALBE, DENIES PAIN OR NEEDS , CALL LIGHT WITHIN REACH
--- NOTE | 2020-07-10 12:45 | NUR ---
REPORT CALLED TO MED SURG FLOOR TO CANDELARIO MORFIN. PT VSS, HR 57, SATS 96% RA, VSS, RIGHT GROIN SOFT WITH NO BLEEDING OPSITE C/D/I, PEDAL PULSE PALPALBE, NO PALPABLE HEMATOMA, DENIES PAIN OR NEEDS, PT TRANSPORTED BACK TO ROOM 2231 VIA BED.
--- NOTE | 2020-07-11 14:10 | OP ---
PATIENT NAME: DENNISE MUNIZ MEDICAL RECORD: [id number] :50 LOCATION:[id number] ADMISSION DATE:07/09/20 SURGEON: GAVI DIMAS MD DATE OF OPERATION: 07/10/2020 PROCEDURE: Left heart catheterization, selective coronary angiography, right femoral artery approach. CATHETERS: A 5-Polish sheath, 5/4 left and right Amarilys, 5/4 pig. The procedure was well tolerated. The patient returned to the [facility]. Sheath removed. ExoSeal device was placed. FINDINGS: Left ventriculography in 30-degree HINES view: Normal wall motion and normal systolic function. CORONARY ANATOMY: Left main: Left main is free of disease. LAD: Has a questionable stenosis in its mid portion; however, it was not flow restrictive via IFR wire. Circumflex: Circumflex is codominant system, free of disease. Right coronary artery: Again, codominant, free of disease. IMPRESSION: Normal left ventricular systolic function. No significant coronary artery disease via IFR wire. 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
== END 2020-07-10 15:23 ==
LOC: D.ER 19:43 → D.MS 23:36 → OBSVTIME 23:36 → D.EDHOLD 23:36 → D.MS 07-10 01:05
PROVIDERS: Family Medicine; ADMIT Emergency Medicine; ATTEND Emergency Medicine
DX: I20.9 Angina pectoris, unspecified (principal); I10 Essential (primary) hypertension; E78.5 Hyperlipidemia, unspecified; R07.9 Chest pain, unspecified; M79.602 Pain in left arm; K21.9 Gastro-esophageal reflux disease without esophagitis; Z79.84 Long term (current) use of oral hypoglycemic drugs; D64.9 Anemia, unspecified; E11.65 Type 2 diabetes mellitus with hyperglycemia